=== PATIENT | female | born 1970 | race Caucasian/White ===

== ENCOUNTER 2021-09-16 17:28 | Outpatient (CLI) | payer BC, SELFPAY ==
--- NOTE | ~2021-09-16 | XR_ITS ---
XR ankle RT min 3V DATE: 09/16/2021 17:54 INDICATION: Patient fell on ice. Ankle pain. TECHNIQUE: 4 views COMPARISON: None FINDINGS: There is a linear oblique fracture with less than one cortical width posterior and lateral displacement, no significant angulation. There is overlying moderately prominent soft tissue swelling . The medial malleolus and posterior malleolus appear intact. The ankle mortise is preserved. IMPRESSION: Minimally posterolaterally displaced lateral malleolar fracture Reviewed, dictated and finalized at location A. ER HOOKER
== END 2021-09-16 17:29 | disposition home or self-care (01) ==
LOC: ANHIMG 17:39
PROVIDERS: PCP Family Medicine
DX: S82.891A Other fracture of right lower leg, initial encounter for closed fracture (principal); X58.XXXA Exposure to other specified factors, initial encounter
CPT/HCPCS: 73610

== ENCOUNTER 2021-09-16 18:19 | Emergency (ER) | payer BC, SELFPAY ==
[2021-09-16 18:21] VITALS: BP 123/75; PULSE 52; RESP 18; TEMP 36.3; O2SAT 100
--- NOTE | 2021-09-16 19:27 | ED.LOWEXIN ---
HPI - Extremity Injury (Lower) General Chief Complaint: Extremity Injury, Lower Stated Complaint: ankle fracture Time Seen by Provider: 09/16/21 18:59 Source: patient History of Present Illness HPI Narrative: Patient presents with ankle fracture. Patient reports she slipped on the ice a couple days ago home noted swelling but continued home management and she was not having significant amount of pain. She saw her primary care doctor who ordered plain films and was found to have a lateral malleolus fracture and was referred to the ER for splinting. Patient reports minimal pain around the lateral malleolus only noted when touching the area. Denies any focal numbness or weakness. She has noted edema and ecchymosis to the area as well. She denies striking her head or any loss of consciousness Related Data Home Medications Medication Instructions Recorded Confirmed timolol 0.5 % eye drops 1 drop EACH EYE Q12H 07/31/19 02/24/21 fluticasone propionate 50 1 spray NASAL BID 10/03/19 02/24/21 mcg/actuation nasal spray,suspension pseudoephedrine HCl 120 mg 120 mg PO Q12H 10/03/19 02/24/21 tablet,extended release brimonidine 0.2 % eye drops 1 drop EACH EYE Q8H 01/29/20 02/24/21 zolmitriptan [Zomig] 5 mg PO .COMPLEX PRN 09/16/21 Allergies Allergy/AdvReac Type Severity Reaction Status Date / Time No Known Allergies Allergy Unknown Verified 09/16/21 19:07 Review of Systems Review of Systems: CONSTITUTIONAL: Denies fever, chills, or sweats. EYES: Denies visual changes, redness, or discharge. ENT: Denies rhinorrhea, congestion, sore throat, or otalgia. CARDIOVASCULAR: Denies chest pain, palpitations, or edema. RESPIRATORY: Denies cough or dyspnea. GASTROINTESTINAL: Denies abdominal pain, nausea, vomiting, or diarrhea. GENITOURINARY: Denies dysuria or hematuria. SKIN: Denies rash or itching. MUSCULOSKELETAL: Denies back pain, joint pain, or myalgia. NEUROLOGIC: Denies headache, numbness, dizziness, or weakness. PSYCHIATRIC: Denies anxiety or depression. 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 Odette-menopausal Post viral syndrome (~07/2019) Seasonal allergic rhinitis Vaginal delivery Vertigo Visual changes Surgical History Surgical History H/O: knee surgery (~09/27/18) History of breast augmentation S/P MCL repair [place] teeth removed Family History Family History Father Heart disease Diabetes mellitus Grandparent Emphysema, unspecified Grandparent Heart disease Grandparent Glaucoma Dementia Grandparent Glaucoma Grandparent Breast cancer Father Acute myocardial infarction Hypertension High cholesterol Social History Social History Smoking status: Never smoker Alcohol intake: current Alcohol use details: socially Substance use: never Substance use type: does not use Exam Narrative: GENERAL: Well-appearing, well-nourished, and in no acute distress. HEAD: Normocephalic, atraumatic. EYES: PERRLA and EOMI. ENT: Nares clear, no rhinorrhea or epistaxis. Mucous membranes moist. NECK: Supple. No masses. No JVD EXTREMITIES: Large edema to the right foot with dependent ecchymosis. There is tenderness palpation over the lateral malleolus SKIN: Warm, dry, no rash. NEURO: No focal deficits. Alert and oriented x3. PSYCH: Normal mood and affect. Course Vital Signs Vital signs: Vital Signs Temperature 36.3 C L 09/16/21 18:21 Pulse Rate 52 L 09/16/21 18:2
== END 2021-09-16 20:00 | disposition home or self-care (01) ==
LOC: ANHED 19:45
PROVIDERS: Emergency Provider Emergency Medicine; PCP Family Medicine
DX: S82.61XA Displaced fracture of lateral malleolus of right fibula, initial encounter for closed fracture (principal); H40.9 Unspecified glaucoma; W00.0XXA Fall on same level due to ice and snow, initial encounter
CPT/HCPCS: 29515; 73610; 99282

== ENCOUNTER 2024-02-01 15:22 | Outpatient (CLI) | payer BC, SELFPAY ==
--- NOTE | ~2024-02-01 | MM_ITS ---
EXAMINATION: MM scrn leonardo implant BI w [place] HISTORY: Screening mammogram TECHNIQUE: Craniocaudal and mediolateral oblique 3-D tomosynthesis images with implant displacement a nd synthetic 2-D images were generated. Craniocaudal and mediolateral oblique views of the breasts wi thout implant displacement were obtained using full field digital mammography. CAD analysis was submi tted and interpreted. COMPARISON: 01/06/2019 BREAST PARENCHYMAL COMPOSITION: Dense: The breasts are heterogeneously dense, which may obscure small masses FINDINGS: There is no evidence of suspicious mass, calcification, or architectural distortion to sugg est malignancy in either breast. There has been no suspicious interval change. IMPRESSION: 1. No mammographic evidence of malignancy. 2. Recommend routine screening mammography in one year. BI-RADS Category 1: Negative Reviewed, dictated and finalized at location B.
== END 2024-02-01 15:23 ==
PROVIDERS: PCP Family Medicine; Visit Provider Family Medicine
DX: Z12.31 Encounter for screening mammogram for malignant neoplasm of breast (principal)
CPT/HCPCS: 77063; 77067